=== PATIENT | female | born 1945 | race Caucasian/White ===

== ENCOUNTER → 2019-11-05 | Day surgery (SDC) | payer MEDICARE ==
[~2019-11-05] MED LIST: ASPI81TA59 PO; IPRATRPIUM/ALBUTEROL 0.5/2.5MG 3 ML NEBU. NEB PRN; IV RINGERS SOLUTION,LACTATED 1,000 ML IV SCH; METO-313 PO; MULT-245 PO; ONDANSETRON PF 4 MG/2 ML VIAL. IV PRN; PROPOFOL 40 ML IV ONE; QUIN40TA16 PO
[2019-11-05 13:29] VITALS: BP 111/65
== END ==
LOC: SURG 09:29
PROVIDERS: ATTEND Internal Medicine Gastroenterology
DX: Z12.11 Encounter for screening for malignant neoplasm of colon (principal); K57.30 Diverticulosis of large intestine without perforation or abscess without bleeding; K64.8 Other hemorrhoids; I10 Essential (primary) hypertension; Z79.82 Long term (current) use of aspirin; Z87.39 Personal history of other diseases of the musculoskeletal system and connective tissue; Z90.710 Acquired absence of both cervix and uterus; Z86.010 Personal history of colon polyps
CPT/HCPCS: G0105; J2704; J7120; 45378

== ENCOUNTER → 2020-04-25 | Outpatient (CLI) | payer MEDICARE ==
[2019-11-05 13:29] VITALS: BP 111/65
[~2020-04-25] MED LIST changes: -IPRATRPIUM/ALBUTEROL 0.5/2.5MG 3 ML NEBU. NEB PRN; -IV RINGERS SOLUTION,LACTATED 1,000 ML IV SCH; -ONDANSETRON PF 4 MG/2 ML VIAL. IV PRN; -PROPOFOL 40 ML IV ONE
--- NOTE | 2020-04-25 10:27 | RAD ---
DATE: 04/25/2020 9:30 AM EXAM: MAMMO JELLY SCREENING BILATERAL HISTORY: Screening COMPARISON: 10/18/2017 Bilateral CC and MLO views of the breasts were performed. Bilateral breast tomosynthesis was performed in CC and MLO projections. This study was interpreted with the benefit of Computerized Aided Detection (CAD). FINDINGS: Breast Density: FATTY The Breast Parenchyma is primarily fatty replaced. Breast parenchyma level density A. No suspicious masses, microcalcifications or architectural distortion is present to suggest malignancy in either breast. The visualized axillae are unremarkable. IMPRESSION: No mammographic evidence of malignancy. BI-RADS CATEGORY: 1 NEGATIVE RECOMMENDED FOLLOW-UP: 12M 12 MONTH FOLLOW-UP Annual screening mammography is recommended, unless clinically indicated sooner based on symptoms or change in physical exam. PQRS compliance statement: Patient information was entered into a reminder system with a target due date for the next mammogram. Mammography is a sensitive method for finding small breast cancers, but it does not detect them all and is not a substitute for careful clinical examination. A negative mammogram does not negate a clinically suspicious finding and should not result in delay in biopsying a clinically suspicious abnormality. "Our facility is accredited by the [employer] Mammography Program."
== END | disposition home or self-care (01) ==
LOC: MAMMO 09:25
PROVIDERS: ATTEND Specialist
DX: Z12.31 Encounter for screening mammogram for malignant neoplasm of breast (principal)
CPT/HCPCS: 77063; 77067

== ENCOUNTER → 2020-10-17 | Outpatient (CLI) | payer MEDICARE ==
[2019-11-05 13:29] VITALS: BP 111/65
--- NOTE | 2020-10-17 15:57 | RAD ---
EXAM: 3 views left ankle DATE: 10/17/2020 12:11 PM INDICATION: Reason: ANKLE PAIN / Spl. Instructions: / History: COMPARISON: No Prior FINDINGS: Midfoot degenerative changes are seen. Small plantar calcaneal enthesophyte. Ankle mortise is congrue nt. Talar dome is intact. Moderate soft tissue swelling about the medial lateral malleolus. IMPRESSION: 1. No evidence of acute fracture or dislocation. 2. Midfoot degenerative changes. 3. Soft tissue swelling about the left ankle. Electronically signed by: Umberto Brown MD (10/17/2020 3:55 PM) [id number]
== END ==
LOC: DXRAD 11:57
PROVIDERS: ATTEND Specialist
DX: M19.072 Primary osteoarthritis, left ankle and foot (principal)
CPT/HCPCS: 73610

== ENCOUNTER → 2021-02-13 | Outpatient (CLI) | payer MEDICARE ==
[2019-11-05 13:29] VITALS: BP 111/65
[~2021-02-13] MED LIST changes: +IOHEXOL 350 MG/ML 100 ML VIAL. IV ONE
--- NOTE | 2021-02-13 16:02 | RAD ---
CTA CHEST History: Shortness of breath Technique: CT of the chest was performed with intravenous contrast. PE protocol. Maximum intensity pr ojection coronal and sagittal reconstructions were performed. Exposure: One or more of the following individualized dose reduction techniques were utilized for thi s examination: 1. Automated exposure control 2. Adjustment of the mA and/or kV according to patient size 3. Use of iterative reconstruction technique. Comparison: None Findings: Chest: No pulmonary embolism. No aortic aneurysm or dissection. Atheromatous plaque within the aorta. Small mediastinal lymph nodes. Enlarged hilar lymph nodes most prominent on the right inferior measu res 1.2 x 1.6 cm. No significant pleural effusion. No pneumothorax. Coronary artery calcifications. Left upper lobe fissure-based nodule measures 6 cm (series 4 image 55). Additional fissure-based nodu le in the left measures 1.0 x 0.6 cm (image 63). 3 mildly left lower lobe pulmonary nodule (image 65) . Left lower lobe 4 mm nodule (image 80). Right middle lobe 5 mm nodule (image 73). Additional 3 mm right middle lobe pulmonary nodule (image 73). Multifocal groundglass opacities. Nodular groundglass opacities within the right upper lobe. Bronchia l wall thickening most prominent within the lower lobes. Upper abdomen: Left renal cyst measures 2.6 cm partially imaged. Bones: No pathologic osseous lesions. Impression: 1. Multifocal groundglass and nodular opacities with bronchial wall thickening, may represent infect ious or inflammatory process. Recommend follow-up to ensure resolution. 2. Enlarged hilar lymph nodes, potentially reactive. 3. Multiple pulmonary nodules. Recommend attention on follow-up. Electronically signed by: Eric Hernandez DO (02/13/2021 3:59 PM) [facility]
== END ==
LOC: CT 15:18
PROVIDERS: ATTEND Specialist
DX: R91.8 Other nonspecific abnormal finding of lung field (principal); R59.0 Localized enlarged lymph nodes; N28.1 Cyst of kidney, acquired; Z20.822 Contact with and (suspected) exposure to COVID-19
CPT/HCPCS: 71275; Q9967; U0003

== ENCOUNTER → 2021-06-06 | Outpatient (CLI) | payer MEDICARE ==
[2019-11-05 13:29] VITALS: BP 111/65
[~2021-06-06] MED LIST changes: -IOHEXOL 350 MG/ML 100 ML VIAL. IV ONE
--- NOTE | 2021-06-06 09:12 | RAD ---
EXAM: Chest CT without intravenous contrast. HISTORY: Abnormal groundglass and nodular opacities on prior CT. TECHNIQUE: Computed tomographic images of the chest were obtained without contrast. Multiplanar refor matting was performed. *One or more of the following individualized dose reduction techniques were utilized for this examina tion: 1. Automated exposure control. 2. Adjustment of the mA and/or kV according to patient size. 3. Use of iterative reconstruction technique. COMPARISON: 02/13/2021. FINDINGS: The heart is normal in size. There is calcified atherosclerotic plaque involving the aorta and coronary arteries. There has been interval decrease in previously demonstrated mediastinal and hi lar lymphadenopathy. No pathologically enlarged lymph node is seen on this exam. There is no pneumothorax or pleural effusion. There are multiple small bilateral pulmonary nodules. F or reference purposes, there is a 3 mm nodule within the medial left upper lobe (series 2, image 21), a 4 mm nodule along the left pleural fissure (series 2, image 40), a 9 mm nodule along the left pleu ral fissure (series 2, image 45), 2 mm nodules within the posterior left lower lobe (series 2, image 49), a 2 mm nodule within the lateral left lower lobe (series 2, image 61), 3 mm nodules along the ri ght horizontal fissure (series 2, image 45 and 46), a 2 mm nodule within the right middle lobe (serie s 2, image 49), a 4 mm groundglass nodule within the anterior right middle lobe (series 2, image 52), a 3 mm nodule within the lateral right middle lobe processes series 2, image 53), a 3 mm nodule with in the right middle lobe (series 2, image 63), adjacent 2 mm and 3 mm pleural-based nodules within th e lateral right lower lobe (series 2, image 59), a 3 mm nodule within the medial right lower lobe (se zully 2, image 45), and a 4 mm nodule within the medial right lower lobe processes series 2, image 45) . There are few additional tiny 2 mm nodules. These are all stable or decreased compared to the prior exam. The previously demonstrated groundglass infiltrate and septal line thickening has resolved. Th ere is minimal posterior dependent and basilar atelectasis. There is no acute finding involving the upper abdomen. There is a 3.0 cm simple left renal cyst. Foll ow-up is not routinely performed for simple cysts. There are degenerative changes involving the spine . There is no suspicious osseous lesion. IMPRESSION: 1. Multiple small bilateral pulmonary nodules, the largest of which measures 9 mm within the left ple ural fissure and is likely a fissural lymph node. These are all stable or slightly decreased compared to the prior exam, favoring benignity. Follow-up in 6 months is recommended. 2. No acute pulmonary finding. 3. Resolution of previously demonstrated lymphadenopathy. Electronically signed by: Ana Murray MD (06/06/2021 9:09 AM) [facility]
--- NOTE | 2021-06-06 17:16 | RAD ---
Bilateral digital screening 2-D and 3-D (digital breast tomosynthesis) mammogram: Reason for examination: Routine screening. Comparison: Mammogram from 04/25/2020 and 10/18/2017. Interpretation was made with the benefit of CAD. FINDINGS: Breast density: Category B. There are scattered areas of fibroglandular density. No new suspicious breast mass, malignant appearing calcifications, or architectural distortion is see n. IMPRESSION: No evidence of malignancy. Assessment: BI-RADS 1. Negative. Recommendation: Routine screening mammograms. The patient will receive a letter with the results in the mail. Patient information will be entered i nto the mammography reminder system with a target recall date for the next mammogram. A reminder alverto er will be generated. Electronically signed by: Sharon Rodarte MD (06/06/2021 5:14 PM) [id number]
== END ==
LOC: MAMMO 08:19
PROVIDERS: ATTEND Specialist
DX: Z12.31 Encounter for screening mammogram for malignant neoplasm of breast (principal); R91.8 Other nonspecific abnormal finding of lung field; R59.0 Localized enlarged lymph nodes; I70.0 Atherosclerosis of aorta; I25.10 Atherosclerotic heart disease of native coronary artery without angina pectoris; N28.1 Cyst of kidney, acquired
CPT/HCPCS: 71250; 77063; 77067

== ENCOUNTER → 2021-12-27 | Outpatient (CLI) | payer MEDICARE ==
[2019-11-05 13:29] VITALS: BP 111/65
--- NOTE | 2021-12-28 11:20 | RAD ---
EXAM: CT CHEST WITHOUT CONTRAST HISTORY: Follow-up nodule COMPARISON: CT chest 06/06/2021 TECHNIQUE: Helical CT of the chest performed without contrast. Coronal and sagittal reformats were o btained. One or more of the following individualized dose reduction techniques were utilized for this examinat ion: 1. Automated exposure control 2. Adjustment of the mA and/or kV according to patient size 3. Use of iterative reconstruction technique. FINDINGS: Thyroid gland and thoracic inlet: Normal. Heart and great vessels: The heart is normal in size. There are coronary calcifications. The thoracic aorta is normal caliber. Mediastinum and bobby: No mediastinal or hilar lymphadenopathy. Lungs and pleura: Multiple bilateral pulmonary nodules are unchanged. This includes a: 3 mm nodule in the lateral right middle lobe (image 54, series 2, 4 mm linear nodule in the anterior right middle l obe (image 53, series 2), 8 mm nodule along the minor fissure, (image 46, series 2) 4 mm nodule in th e right lower lobe (image 43, series 2), 3 mm nodule in the left apex (image 10, series 2), 9 mm nodu le along the left major fissure (image 42, series 2), 6 mm nodule along the left major fissure (image 36, series 2), and 3 mild nodule in the posterior left lower lobe (image 47, series 2). There are no new pulmonary nodules. Central airways are clear. No pleural effusion. Chest wall and axillae: No axillary lymphadenopathy. Upper abdomen: There is a 3.1 cm simple cyst in the left kidney. The upper abdomen is otherwise unrem arkable. Bones: Mild thoracal lumbar scoliosis. No acute osseous abnormality. There is mild kyphosis centered at T11-T12. IMPRESSION: 1. Multiple unchanged bilateral pulmonary nodules. The largest is a 9 mm nodule along the left major fissure, possibly a lymph nodes. Consider follow-up CT in 6-12 months to complete 18-24 months of pack rveillance. 2. Coronary artery calcifications. Electronically signed by: Yuliya Gaines MD (12/28/2021 11:17 AM) [id number]
== END ==
LOC: CT 14:14
PROVIDERS: ATTEND Specialist
DX: R91.8 Other nonspecific abnormal finding of lung field (principal); I25.10 Atherosclerotic heart disease of native coronary artery without angina pectoris; M41.85 Other forms of scoliosis, thoracolumbar region; N28.1 Cyst of kidney, acquired
CPT/HCPCS: 71250